=== PATIENT | male | born 1965 | race Caucasian/White ===

== ENCOUNTER → 2019-09-09 13:15 | Outpatient (BNVA) | payer MEDICARE, SELFPAY | PROVIDERS: Visit Provider Emergency Medicine | DX: M19.031 Primary osteoarthritis, right wrist (principal) | CPT/HCPCS: 73110 ==

== ENCOUNTER 2023-04-14 15:25 | Emergency (ER) | payer MEDICARE, SELFPAY ==
[2023-04-14 15:31] VITALS: BP 191/117; PULSE 97; RESP 18; TEMP 36.4; O2SAT 97
--- NOTE | 2023-04-14 16:06 | W.ED.EXTPRO ---
HPI - Extremity Problem General: Chief complaint: Extremity Injury, Upper Stated complaint: right wrist swollen Time Seen by Provider: 04/14/23 15:38 Source: patient Mode of arrival: ambulatory Limitations: no limitations History of Present Illness: 57 y/o male presents to ED today with complaints of right wrist pain and knot on wrist x 1 month. Reports the knot has continued to get bigger of the month. Reports he has been taking OTC Tylenol. Has seen PCP Dr. Gilliam once for issue and was told it was arthritis. Reports pain all the time but mainly occurs with movement of wrist and manipulation of objects. Has not noticed any significant swelling, redness, warmth. No history of gout. Of note he was just seen at [facility] walk in and diagnosed with a ganglion cyst. Not sure why he is seeking another medication evaluation here in the ED. MD Complaint: extremity pain and joint pain Onset (ago): month(s) Pain Consistency: constant Location: right and upper extremity Radiation: none Relieving factors: movement Exacerbating factors: nothing Associated symptoms: Reports other (nodule to volar wrist); Deny fever(s) Review of Systems Const: Denies: fever(s), chills, body aches, fatigue or malaise Musc: Reports: extremity pain (R hand) and joint pain (R wrist); Denies: neck pain, back pain, extremity swelling, joint swelling, joint redness or joint warmth Neuro: Denies: numbness in extremities, weakness in extremities or sensory changes FORMERLY [facility], 1928–1983 ED PFSH: Family History Family/Other Cancer Denies family history of Diabetes CAD (coronary artery disease) Hypertension Stroke Social History Smoking and tobacco status: current every day smoker cigarettes Packs smoked per day: 1.5 Quit status (tobacco): not considering quitting Second hand smoke exposure: No Alcohol intake: current Alcohol intake frequency: 3 or more drinks per day Alcohol type: beer Desire information about alcohol rehabilitation?: No Substance/Drug Use: never Desire information about substance/drug rehabilitation?: No Current gender identity: Male Physical Exam Const: COMMON NORMALS: no acute distress, average body habitus, patient oriented x3, no limitations, healthy appearing, alert and well nourished Resp: COMMON NORMALS: normal respiratory effort Cardio: COMMON NORMALS: regular rate and regular rhythm RATE: regular rate RHYTHM: regular rhythm Extremity: COMMON NORMALS: full ROM, capillary refill normal, no clubbing, cyanosis or edema and no pedal edema GENERAL: Yes normal exam except as noted RIGHT UPPER EXTREMITY: Yes wrist and Yes hand & digits OTHER: pt has a firm 1.5cm mass/nodule to volar R wrist that is painful with palpation and ROM of wrist joint; no diffuse joint swelling; no erythema/warmth; no concern for septic arthritis Neuro: COMMON NORMALS: patient oriented x3, moves all extremities, no focal motor deficits and no sensory deficits noted SENSORIUM/ORIENTATION: Yes alert Course Vital Signs: Vital signs: Vital Signs Temperature 97.6 F 04/14/23 15:31 Pulse Rate 97 04/14/23 15:31 Respiratory Rate 18 04/14/23 15:31 Blood Pressure 191/117 04/14/23 15:31 Pulse Oximetry 97 04/14/23 15:31 Oxygen Delivery Me thod Room Air 04/14/23 15:31 MDM - Extremity (Nontraumatic) Medical Decision Making DDx-ganglion cyst, tenosynovial giant cell tumor, lipoma, etc. Patient seems rather bothered by this and has sought medical evaluation now 3 times. It causes him quite a bit of discomfort and he is seemingly very active with his hands. I think it is reasonable to refer him to orthopedics. No radiology studies performed this visit Discharge Plan Discharge Patient Disposition: Home Clinical Impression: Pain in right wrist Condition: Stable Prescriptions: New methylprednisolone [Medrol (Jin)] 4 mg tablets,dose pack See Rx Instructions .ROUTE .COMPLEX Qty: 21 0RF Rx Instructions: orally per package directions No Action Centrum Silver Ultra Men's 300-600-300 mcg tablet 1 tab PO DAILY elderberry fruit 200 mg capsule See Rx Instructions PO DAILY Rx Instructions: 1 capsule PO daily; cinnamon bark 500 mg capsule 500 mg PO DAILY garlic 300 mg capsule 300 mg PO DAILY losartan 25 mg tablet 25 mg PO DAILY Discharge Orders: Discharge ED (Routine); Ordered 04/14/23 Ordered By: Argelia Valle Referrals: Pavan Gilliam MD [Primary Care Provider] - Coding Level of Care Code ED Post Office Markup Clerk for Toneyg Robert
[2023-04-14] MEDS: dexamethasone 10 mg/mL INJ 8 MG IM (16:24)
--- NOTE | 2023-04-15 08:22 | PC.SOCIAL ---
Ortho Referral Referral to clinic at this time. Clinic to contact patient with appt date/time.
== END 2023-04-14 16:47 | disposition home or self-care (01) ==
PROVIDERS: Emergency Provider Physician Assistant; PCP Internal Medicine Cardiovascular Disease
DX: M25.531 Pain in right wrist (principal); F17.210 Nicotine dependence, cigarettes, uncomplicated
CPT/HCPCS: 96372; 99284; J1100

== ENCOUNTER → 2023-05-10 10:32 | Outpatient (BNVA) | payer MEDICARE, SELFPAY | PROVIDERS: PCP Internal Medicine Cardiovascular Disease; Referring Provider Physician Assistant; Visit Provider Physician Assistant | DX: M67.431 Ganglion, right wrist (principal) | CPT/HCPCS: 73110; 99204 ==

== ENCOUNTER 2023-06-16 07:19 | Day surgery (SDC) | payer MEDICARE, SELFPAY ==
[2023-06-16] VITALS (8 sets, daily range): BP systolic 98–170; BP diastolic 80–104; PULSE 81–94; RESP 12–19; TEMP 36.1–36.6; O2SAT 94–97; BMI 31.9
[2023-06-16] MEDS: sodium chloride 0.9% 1,000 ML 30 ML IV (07:44)
[2023-06-16] MEDS: acetaminophen 1,000 MG/100 ML PIGGYBACK 400 MG IV (07:46)
[2023-06-16] MEDS: ketorolac 30 mg/mL INJ IVP (07:46)
--- NOTE | 2023-06-16 08:24 | ANES.PREANE2 ---
Pre-Anesthetic Assessment Height/Weight: Height 1.73 m Weight 95.254 kg Temp Pulse Resp BP Pulse Ox O2 Del Method 97.6 F 88 16 170/104 96 Room Air 06/16/23 07:34 06/16/23 07:34 06/16/23 07:34 06/16/23 07:34 06/16/23 07:34 06/16/23 07:34 Operation Date: 06/16/23 09:20 Proposed Procedures p Right Wrist Excision Of Ganglion Cyst(Right) - Santiago Irving DO Familial anesthetic complications: none Was Beta Cesar taken within 24 hours: N/A Was Clonidine taken within 24 hours: N/A Last intake: Intake Last Liquid Date 06/15/23 Last Liquid Time 22:00 Last Solid Date 06/15/23 Last Solid Time 22:00 Social Alcohol (Daily beer) and Tobacco Exam alert, oriented x 3 and regular rate & rhythm Airway Submandibular: within normal limits Cervical ROM: within normal limits Mallampati: Class II Dentition: chipped CV/HEM Congestive Heart Failure Metabolic Obese Anesthetic Plan ASA status: 3 Anesthesia: Choice Medications/Allergies Home Medications Medication Instructions Recorded Confirmed Last Taken Type cinnamon bark 500 mg capsule 500 mg PO DAILY 09/09/19 06/15/23 06/15/23 History elderberry fruit 200 mg capsule 200 mg PO DAILY 09/09/19 06/15/23 06/15/23 History garlic 300 mg capsule 300 mg PO DAILY 09/09/19 06/15/23 06/15/23 History ynylihwn-bu-ywyus 300 mcg-K 60 1 tab PO DAILY 09/09/19 06/15/23 06/15/23 History mcg-lycop 600 mcg-lutein 300 mcg tablet (Centrum Silver Ultra Men's) losartan 25 mg tablet 25 mg PO DAILY 04/14/23 06/15/23 06/15/23 History dicyclomine 10 mg capsule 10 mg PO TID 06/15/23 06/15/23 06/15/23 History echinacea 400 mg capsule 400 mg PO DAILY 06/15/23 06/15/23 06/15/23 History Allergies Allergy/AdvReac Type Severity Reaction Status Date / Time No Known Allergies Allergy Verified 06/16/23 07:29 Current Medications Generic Name Dose Route Start Last Admin Trade Name Freq PRN Reason Stop Dose Admin Sodium Chloride 1,000 mls @ 30 mls/hr 06/16/23 07:30 06/16/23 07:44 Sodium Chloride 0.9% IV 06/17/23 07:29 30 mls/hr .Q24H CARLEY Administration PFSH Anesthesia Family History Family/Other Cancer Denies family history of Diabetes CAD (coronary artery disease) Hypertension Stroke Social History Smoking and tobacco/nicotine status: current every day tobacco/nicotine user cigarettes Packs smoked per day: 1.5 Quit status (tobacco/nicotine): not considering quitting Second hand smoke exposure: No Alcohol intake: current Alcohol intake frequency: 3 or more drinks per day Alcohol type: beer Substance/Drug Use: never Current gender identity: Male Data Anesthesia Cardiac Studies: No Data to Display
--- NOTE | 2023-06-16 09:39 | W.PM.OPSFHP ---
Same Day Surgery H&P Indication for Procedure/HPI DATE OF PROCEDURE: June 16, 2023 CHIEF COMPLAINT/INDICATIONFOR SURGICAL PROCEDURE: Right volar wrist ganglion cyst painful PREOP DIAGNOSIS: Right volar wrist ganglion cyst PLANNED PROCEDURE: Operation Date: 06/16/23 09:20 Proposed Procedures p Right Wrist Excision Of Ganglion Cyst(Right) - Santiago Irving DO Medications/Allergies* Home Medications Medication Instructions Recorded Confirmed Type cinnamon bark 500 mg capsule 500 mg PO DAILY 09/09/19 06/15/23 History elderberry fruit 200 mg capsule 200 mg PO DAILY 09/09/19 06/15/23 History garlic 300 mg capsule 300 mg PO DAILY 09/09/19 06/15/23 History effulyow-pb-qjlkv 300 mcg-K 60 1 tab PO DAILY 09/09/19 06/15/23 History mcg-lycop 600 mcg-lutein 300 mcg tablet (Centrum Silver Ultra Men's) losartan 25 mg tablet 25 mg PO DAILY 04/14/23 06/15/23 History dicyclomine 10 mg capsule 10 mg PO TID 06/15/23 06/15/23 History echinacea 400 mg capsule 400 mg PO DAILY 06/15/23 06/15/23 History Allergies/Adverse Reactions Allergy/AdvReac Type Severity Reaction Status Date / Time No Known Allergies Allergy Verified 06/16/23 07:29 Current Medications: Generic Name Dose Route Start Last Admin Trade Name Freq PRN Reason Stop Dose Admin Sodium Chloride 1,000 mls @ 30 mls/hr 06/16/23 07:30 06/16/23 07:44 Sodium Chloride 0.9% IV 06/17/23 07:29 30 mls/hr .Q24H CARLEY Administration Pertinent History/Comorbid Conditions* Family History (Updated 09/09/19 @ 13:01 by Enrestine Jacobson LPN) Cancer Family/Other Denies family history of Diabetes CAD (coronary artery disease) Hypertension Stroke Social History Smoking and tobacco/nicotine status: current every day tobacco/nicotine user cigarettes Packs smoked per day: 1.5 Quit status (tobacco/nicotine): not considering quitting Second hand smoke exposure: No Alcohol intake: current Alcohol intake frequency: 3 or more drinks per day Alcohol type: beer Substance/Drug Use: never Current gender identity: Male Pertinent Exam Findings alert, oriented x 3, operative site marked and procedure specific exam findings Right wrist volar ganglion cyst palpable and tender to palpation just ulnar to the radial artery radial artery is palpable. Hand warm well-perfused patient is able to make a fist. Sensations intact to light touch distally. Recommendations Surgery/Procedure today Other Plans: Plan to proceed with a right volar wrist ganglion cyst excision today. Patient understands incidence of procedure risk benefits complications alternatives of surgery understands risk of surgery include not limited to make it better make it worse persistent pain, recurrence of cyst and possible injury to neurovascular structures. Understanding risk he agrees to proceed all questions answered. Coding Level of Care Code Acute Code for Chg Robert
[2023-06-16] MEDS: ceFAZolin 2,000 MG in sodium chloride 0.9% (plus) 50 ML 100 MG IV (10:08)
[2023-06-16] MEDS: ROPivacaine 0.5% SDV 30 mL 25 MG INJECTION (10:33)
[2023-06-16] MEDS: BUPivacaine 0.5% INJ 10 mL 5 ML INJECTION (10:33)
--- NOTE | 2023-06-16 11:15 | W.PM.BPON ---
Date of Procedure: 06/16/2023 Surgeon: Santiago Irving DO Development Technical Lead(s): None Procedure(s) performed: Right volar wrist ganglion cyst excision Right FCR tendon tenosynovectomy Findings of the procedure(s): Patient was found to have significant hypertrophy and tenosynovitis of the right FCR tendon with associated right hypertrophic and volar ganglion cyst. Procedure went as planned without complications. Mass was sent for pathology Estimated blood loss: 2 mL Specimen(s) removed: Right volar wrist hypertrophic volar capsule and ganglion cyst and tenosynovitis excised and sent for path Post-operative diagnosis: Right volar wrist ganglion cyst and FCR tenosynovitis
--- NOTE | 2023-06-16 11:16 | PM.OP ---
Operative Report Date of procedure: June 16, 2023 Pre-op diagnosis: Right wrist volar ganglion cyst Post-op diagnosis: Right wrist volar ganglion cyst and right wrist flexor carpi radialis tendon inflammatory tenosynovitis Surgeon: Santiago Irving DO Procedure: Procedure Right volar wrist?ganglion?cyst excision Right wrist flexor carpi radialis tenosynovectomy Specimens removed/disposition: Right volar wrist?ganglion?cyst excised and sent for pathology Surgeon: Santiago Irving DO Estimated blood loss: 2mL Tourniquet time 30 minutes IV fluids: See anesthesia record Complications: None Findings: See operative report narrative Condition: stable Disposition: same day Brief History: Patient's been worked up in the outpatient setting and findings consistent with preoperative diagnosis.? Patient has a right volar wrist?ganglion?cyst.? Patient has attempted conservative treatment and this has become significantly painful.? At this point time patient like a more permanent solution in the lowest chance of recurrence and as result through shared decision making we agreed to proceed with a right wrist?ganglion?cyst excision.? Patient understands risk benefits complication alternatives surgical nonsurgical treatment options.? Understanding risk of surgery patient agrees to proceed.? All questions answered.? Consent obtained in the office. Procedure: Patient seen evaluate in the preoperative holding area.? Consent was signed and reviewed with patient.? All questions were answered at that time.? Correct extremity was then marked.? Once seen evaluated by anesthesia patient was then brought back to the operative suite.? Patient was then placed in supine position all bony prominences well-padded patient was properly secured to the bed.? An armboard was then applied for the right upper extremity.? A nonsterile tourniquet was applied to the right upper extremity arm.? Patient then underwent anesthesia per the anesthesia department.? Once appropriately anesthetized the right upper extremity was then prepped and draped in standard orthopedic fashion.? Final timeout performed.? Patient received appropriate preoperative antibiotics. Under sterile aseptic technique I began with local anesthetic for my preplanned surgical site.? Then I utilized an Esmarch tourniquet to exsanguinate the right upper extremity to 250 mmHg Made meme incision over the volar cyst. This was directly over the palpable radial artery. Sharp scalpel incision was made through skin. I switched to dissection scissors and subsequently identified the FCR as my landmark and then subsequently spread and dissected out the radial artery. Patient had significant inflammation scar tissue and tenosynovitis along the entirety distally of the FCR tendon sheath and as a result this sheath was opened and a tenosynovectomy was performed as this had significant inflammation and was a pain generator adjacent to the volar cyst. It was clearly evident that the volar ganglion cyst was adjacent to the radial artery as well as the FCR tendon. I first identified the radial artery proximally and protected this throughout the case utilizing this and traced this distally and found its course as it relates to the cyst. I then identified the volar cyst which was small in nature but did have significant hypertrophy volar capsule. I switched to Littler dissection scissors as well asAt this point in time bipolar electrocautery and mobilized the entirety of the cyst. Once the artery was completely mobilized off the cyst I then subsequently dissected circumferentially around the cyst and identified it at the stalk going into the volar wrist capsule. This was then severed at the base and utilizing bipolar electrocautery coagulated the entire capsule to prevent any further recurrence. This was a complete excision of the volar ganglion cyst. The cyst was then sent for pathology. I then thoroughly irrigated the wound bed exact hemostasis was maintained throughout the dissection. Cyst was then sent for pathology.? I then thoroughly irrigated the wound bed tourniquet was deflated.? Hemostasis was satisfactory with bipolar electrocautery.? I then closed the incision in layered fashion with 3-0 Vicryl suture subcutaneously and running horizontal mattress nylon stitch for skin.? Xeroform over the incisions 4 x 4's ABD soft roll and a volar splint was applied.? Patient was then awakened from anesthesia and taken back in stable condition. Disposition: Patient taken back in stable condition recovering well.? Patient will receive appropriate discharge instructions as well as pain medication postoperatively.? Patient placed in a volar splint.? We will follow-up with in the orthopedic office in 2 weeks.? Patient understands of any questions or concerns and contact the office.
[2023-06-16] MEDS: TRAMadol 50 mg Tablet PO (12:04)
--- NOTE | 2023-06-16 15:48 | ANE.PACU2 ---
Inpatient post-anesthesia follow up: Airway intact: Yes Vital signs: Temperature 98 F Pulse Rate 81 Respiratory Rate 16 Blood Pressure 146/92 Pulse Oximetry 97 Oxygen Delivery Me thod Room Air Oxygen Flow Rate Fraction of Inspir ed Oxygen Hydration adequate: Yes Nausea and vomiting: No Pain level: 1 Mental status: Baseline
== END 2023-06-16 12:39 | disposition home or self-care (01) ==
PROVIDERS: PCP Internal Medicine Cardiovascular Disease; Visit Provider Student in an Organized Health Care Education/Training Program
PROC: (CPT 25111; principal; 2023-06-16 09:10)
DX: M67.431 Ganglion, right wrist (principal); M65.9 Synovitis and tenosynovitis, unspecified; I50.9 Heart failure, unspecified; E66.9 Obesity, unspecified; Z68.31 Body mass index [BMI] 31.0-31.9, adult; F17.210 Nicotine dependence, cigarettes, uncomplicated
CPT/HCPCS: 25111; 25115; 88304; J0131; J0690; J1100; J1885; J2405; J2704; J2795; J3010; J3490; J7030

== ENCOUNTER → 2023-07-07 11:42 | Outpatient (BNVA) | payer MEDICARE, SELFPAY | PROVIDERS: PCP Internal Medicine Cardiovascular Disease; Visit Provider Student in an Organized Health Care Education/Training Program | DX: Z98.890 Other specified postprocedural states (principal) | CPT/HCPCS: 99024; 99213 ==